=== PATIENT | male | born 1950 | race Caucasian/White ===

== ENCOUNTER 2017-03-18 19:41 | Emergency (ER) | payer BC ==
[2017-03-18] MEDS ORDERED: Bacitracin/Neomycin/Polymyxin B Oint 0.9 GM U/D Packet TOP ONE (20:17)
--- NOTE | 2017-03-18 22:09 | EDM.PDOC ---
ED HPI GENERAL MEDICAL PROBLEM - General Chief Complaint: Bite:Animal, Insect Stated Complaint: Dog Bite Time Seen by Provider: 03/18/17 19:42 Source of Information: Reports: Patient - History of Present Illness INITIAL COMMENTS - FREE TEXT/NARRATIVE: This Dr. Gonzalez dictating on Tima Aguiar. patient's 66-year-old who comes in with multiple dog bites has two bites on left hand and one bite on right. wounds approximately 1 cm a piece. these were prepped and draped in the usual standard form. after appropriate prepping and draping, we irrigate and clean with saline. after the wounds were irrigated ,the one on the dorsal aspect of the right hand was closed with 5-0 1 suture of nylon. for the one on the palmar of left hand, was irrigated. 1% Xylocaine was injected on both. Left hand closed with 3 interrupted sutures 5-0 nylon. the dorsal aspect of left hand was injected Xylocaine. 2 interrupted sutures 5-0 nylon were placed. patient tolerated it well. will be sent home in satisfactory condition Onset: Today, Sudden Duration: Hour(s): Location: Reports: Upper Extremity, Left, Upper Extremity, Right Quality: Reports: Ache Severity: Moderate Improves with: Reports: None Worsens with: Reports: None Context: Reports: Trauma Treatments LEAD GENERATOR: Reports: Cold Therapy Bilateral Hand Pain Score (Numeric/FACES): 2 - Related Data Allergies Allergy/AdvReac Type Severity Reaction Status Date / Time No Known Allergies Allergy Verified 03/18/17 19:48 Home Meds: Home Meds ALPRAZolam [Alprazolam] 0.25 mg PO BEDTIME PRN 03/18/17 [History] Lisinopril 5 mg PO DAILY 03/18/17 [History] Multivitamin [Multivitamins] 1 tab PO DAILY 03/18/17 [History] ED ROS GENERAL - Review of Systems Review Of Systems: See Below Constitutional: Reports: No Symptoms HEENT: Reports: No Symptoms Respiratory: Reports: No Symptoms Cardiovascular: Reports: No Symptoms Endocrine: Reports: No Symptoms GI/Abdominal: Reports: No Symptoms : Reports: No Symptoms Musculoskeletal: Reports: No Symptoms Skin: Reports: No Symptoms Neurological: Reports: No Symptoms Psychiatric: Reports: No Symptoms Hematologic/Lymphatic: Reports: No Symptoms Immunologic: Reports: No Symptoms ED EXAM, ANIMAL BITE - Physical Exam Exam: See Below Exam Limited By: No Limitations General Appearance: Alert, WD/WN, No Apparent Distress Eye Exam: Bilateral Eye: EOMI, Normal Inspection, PERRL Ears: Normal External Exam, Normal Canal, Hearing Grossly Normal, Normal TMs Nose: Normal Inspection, Normal Mucosa, No Blood Throat/Mouth: Normal Inspection, Normal Lips, Normal Teeth, Normal Gums, Normal Oropharynx, Normal Voice, No Airway Compromise Head: Atraumatic, Normocephalic Neck: Normal Inspection, Supple, Non-Tender, Full Range of Motion Respiratory/Chest: No Respiratory Distress, Lungs Clear, Normal Breath Sounds, No Accessory Muscle Use, Chest Non-Tender Cardiovascular: Normal Peripheral Pulses, Regular Rate, Rhythm, No Edema, No Gallop, No JVD, No Murmur, No Rub GI/Abdominal: Normal Bowel Sounds, Soft, Non-Tender, No Organomegaly, No Distention, No Abnormal Bruit, No Mass (Male) Exam: Deferred Rectal (Males) Exam: Deferred Back Exam: Normal Inspection, Full Range of Motion, NT Extremities: Other (Bilateral hand dog bites swelling on the dorsal aspect of the left hand) Neurological: Alert, Oriented, CN II-XII Intact, Normal Cognition, Normal Gait, Normal Reflexes, No Motor/Sensory Deficits Psychiatric: Normal Affect, Normal Mood Skin Exam: Normal Color, Warm/Dry, Other (see procedure for wound repair of left and right hand) Lymphatic: No Adenopathy ED ANIMAL BITE PROCEDURES - Laceration/Wound Repair Hand Progress/Comments: multiple dog bites has two bites on left hand and one bite on right. wounds approximately 1 cm a piece. these were prepped and draped in the usual standard form. after appropriate prepping and draping, we irrigate and clean with saline. after the wounds were irrigated ,the one on the dorsal aspect of the right hand was closed with 5-0 1 suture of nylon. for the one on the palmar of left hand, was irrigated. 1% Xylocaine was injected on both. Left hand closed with 3 interrupted sutures 5-0 nylon. the dorsal aspect of left hand was injected Xylocaine. 2 interrupted sutures 5-0 nylon were placed. patient tolerated it well. will be sent home in satisfactory condition Course - Vital Signs Last Recorded V/S: Last Vital Signs Temp 99.0 F 03/18/17 19:42 Pulse 92 03/18/17 19:42 Resp 18 03/18/17 19:42 BP 168/88 H 03/18/17 19:42 Pulse Ox 100 03/18/17 19:42 - Orders/Labs/Meds Meds: Medications Discontinued Medications Generic Name Dose Route Start Last Admin Trade Name Tamiko PRN Reason Stop Dose Admin Lidocaine HCl 20 ml 03/18/17 20:14 Xylocaine-Mpf 1% INJECT 03/18/17 20:15 ONETIME ONE Neomycin/Polymyxin/Bacitracin 1 each 03/18/17 20:17 03/18/17 21:00 Triple Antibiotic Oint TOP 03/18/17 20:18 1 each ONETIME ONE Administration Departure - Departure Time of Disposition: 22:08 Disposition: Home, Self-Care 01 Condition: Good Clinical Impression: Dog bite Qualifiers: Encounter type: initial encounter Qualified Code(s): W54.0XXA - Bitten by dog, initial encounter - Discharge Information Instructions: Stitches, Mago, or Adhesive Wound Closure, [id number], Amoxicillin; Clavulanic Acid extended-release tablets Referrals: PCP,Not In Area [Primary Care Provider] - Forms: ED Department Discharge Additional Instructions: Keep area clean and dry. Wash with mild antibacterial soap and water, apply Triple Antibiotic Ointment twice a day. Keep covered with bandage if exposed to dirt. Get rabies vaccine information to hospital as soon as possible. Remove sutures in 10 days. See your PCP if any s/s of infection occur. Care Plan Goals: Patient sent home on Augmentin 875 twice a day for 10 days
[2017-03-19 01:56] VITALS: BP 168/88
== END 2017-03-18 22:10 | disposition home or self-care (01) ==
LOC: LL.ED 19:41
DX: S61.452A Open bite of left hand, initial encounter (principal); S61.451A Open bite of right hand, initial encounter; Z79.899 Other long term (current) drug therapy; W54.0XXA Bitten by dog, initial encounter
CPT/HCPCS: 12001; 73130-RT; 99283